=== PATIENT | male | born 1945 | race Caucasian/White ===

== ENCOUNTER 2016-12-31 18:10 | Emergency (ER) | payer MEDICARE ==
[~2016-12-31] VITALS: Ht 185.4 cm; Wt 99.8 kg
[2016-12-31 18:11] VITALS: BP 103/60
[2016-12-31] MEDS ORDERED: LORazepam 2 MG/ML, 1ML ONE (18:14)
[2016-12-31] MEDS ORDERED: ROSU5TAB PO (18:32)
[2016-12-31] MEDS ORDERED: FINA5TAB4 PO (18:32)
[2016-12-31] MEDS ORDERED: TIMO5DRO5 RIGHTEYE (18:32)
[2016-12-31] MEDS ORDERED: METO50TA82 PO (18:32)
[2016-12-31] MEDS ORDERED: ASPI-621 PO (18:32)
[2016-12-31 18:51] LABS: BLOOD UREA NITROGEN 19 mg/dL (7-18)
[2016-12-31 19:00] LABS: IS PT STATUS REG ER OR PRE ER? YES
[2016-12-31] MEDS ORDERED: LORazepam 2 MG/ML, 1ML IVPush ONE (19:00)
[2016-12-31] MEDS ORDERED: SODIUM CHLORIDE 0.9%, 500ML IVBOLUS ONE (19:30)
== END 2016-12-31 21:13 | disposition home or self-care (01) ==
LOC: ED 19:35
DX: E86.0 Dehydration (principal); R42 Dizziness and giddiness; R11.0 Nausea; I10 Essential (primary) hypertension
CPT/HCPCS: 36415; 71010; 80048; 82040; 84484; 85025; 93005; 96361; 96374; 99285; J2060; J7040